=== PATIENT | female | born 1980 | race Two or more races ===

== ENCOUNTER → 2024-03-03 | Outpatient (CLI) | payer OTHER, SELFPAY ==
[2024-03-03 08:47] LABS: T4 (Thyroxine) 10.4 mcg/dL (4.5-10.9)
[2024-03-03 08:48] LABS: Thyroid Stimulating Hormone 24.14 uIU/mL (0.55-4.78)
== END | disposition home or self-care (01) ==
LOC: COPL 06:45
PROVIDERS: PCP Family Medicine; Referring Provider Family Medicine; Visit Provider Family Medicine
DX: E03.9 Hypothyroidism, unspecified (principal)
CPT/HCPCS: 36415; 84436; 84443

== ENCOUNTER → 2024-07-08 | Outpatient (CLI) | payer OTHER, SELFPAY ==
[2024-07-08 14:48] LABS: T4 (Thyroxine) 7.3 mcg/dL (4.5-10.9)
[2024-07-08 14:49] LABS: Thyroid Stimulating Hormone 1.78 uIU/mL (0.55-4.78)
== END | disposition home or self-care (01) ==
LOC: COPL 13:11
PROVIDERS: PCP Family Medicine; Referring Provider Family Medicine; Visit Provider Family Medicine
DX: E03.9 Hypothyroidism, unspecified (principal)
CPT/HCPCS: 36415; 84436; 84443

== ENCOUNTER → 2024-10-05 | Outpatient (CLI) | payer OTHER, SELFPAY ==
[2024-10-05 14:59] LABS: T4 (Thyroxine) 6.0 mcg/dL (4.5-10.9); Thyroid Stimulating Hormone 4.69 uIU/mL (0.55-4.78)
== END | disposition home or self-care (01) ==
LOC: COPL 13:58
PROVIDERS: PCP Family Medicine; Referring Provider Family Medicine; Visit Provider Family Medicine
DX: E03.9 Hypothyroidism, unspecified (principal)
CPT/HCPCS: 36415; 84436; 84443

== ENCOUNTER → 2024-10-21 | Outpatient (CLI) | payer OTHER, SELFPAY ==
--- NOTE | 2024-10-21 13:17 | XR_ITS ---
Examination: Foot bilateral, 6 views Technique: AP, oblique, lateral views each foot total 6 views Date and time of exam: October 21, 2024 1322 hours INDICATIONS: Bilateral foot pain beginning 18 months ago. FINDINGS: Mild osteopenia. Bilateral mild narrowing first metatarsophalangeal joints 10 mm right 10 mm left plantar bony calcaneal spurs No fractures IMPRESSION: Large bilateral plantar bony calcaneal spurs
== END | disposition home or self-care (01) ==
LOC: CDIM 13:05
PROVIDERS: PCP Family Medicine; Referring Provider Family Medicine; Visit Provider Family Medicine
DX: M77.32 Calcaneal spur, left foot (principal); M77.31 Calcaneal spur, right foot
CPT/HCPCS: 73630

== ENCOUNTER 2024-11-15 15:02 | Emergency (ER) | payer OTHER, SELFPAY ==
[2024-11-15 15:03] VITALS: BMI 43.8
[2024-11-15 15:25] VITALS: BP 154/94; PULSE 106; RESP 17; TEMP 37.4; O2SAT 95
--- NOTE | 2024-11-15 15:51 | XR_ITS ---
Examination: Pelvic ultrasound, transabdominal, complete Technique: Transabdominal ultrasound of the pelvis performed using grayscale imaging Date and time of exam: November 15, 2024 at 1817 hours INDICATIONS: Pelvic pain beginning 2 days ago, history ovarian cystic disease FINDINGS: Uterus 8.4 cm endometrial stripe 0.3 cm. No uterine mass or intrauterine gestation. Right ovary 2.7 cm arterial flow Left ovary obscured by bowel gas IMPRESSION: No uterine mass or intrauterine gestation
--- NOTE | 2024-11-15 15:53 | XR_ITS ---
Examination: CT abdomen with intravenous contrast CT pelvis with intravenous contrast 2-D coronal reconstructions 2-D sagittal reconstructions Date and time of exam:November 15, 2024, 1856 hours INDICATIONS: Abdominal pain flank pain and back pain today. CTDI: vol (mGy) 21.7 DLP: (mGycm) 1326 Technique: Multiple axial sections of the abdomen and pelvis have been obtained. 64 slice high-resolution scanner used. 3 mm axial sections have been obtained, post intravenous injection 60 cc Isovue 370 2-D sagittal, coronal reconstructions obtained. Low dose protocols were performed. One or more of the following dose reduction techniques were used; automated exposure control, adjustment of the mA and/or KV according to patient size, use of iterative reconstruction technique. Findings: No focal liver or splenic lesion No gallstones No pancreatic mass 18 mm fat-containing adrenal nodule on the right Minimal right hydronephrosis secondary to 2 mm distal right ureteral calculus image 211 Normal appendix No bowel obstruction Anteverted uterus No bladder mass Moderate disc narrowing L5-S1 IMPRESSION: Minimal right hydronephrosis secondary to 2 mm distal right ureteral calculus
--- NOTE | 2024-11-15 15:54 | PD.EDRME ---
Rapid Medical Screening Exam RME Arrival date/time: 11/15/24 15:02 Chief Complaint: Back Pain/Injury Time Seen by Provider: 11/15/24 15:22 Vital signs: Vital Signs Temperature 99.4 F 11/15/24 15:25 Pulse Rate 106 H 11/15/24 15:25 Respiratory Rate 17 11/15/24 15:25 Blood Pressure 154/94 H 11/15/24 15:25 Pulse Oximetry (%) 95 11/15/24 15:25 Oxygen Delivery Method Room Air 11/15/24 15:25 Vital signs reviewed by provider: Yes RME Narrative: Patient is a 44-year-old female is in emerged from with concerns for bilateral flank pain as well as pelvic pain. Patient states that she has a history of ovarian cysts requiring removal of one of her ovaries possibly the left one and fibromyalgia. Patient states that she was in so much pain in her pelvis yesterday that she took an oxycodone. Today had severe left back pain, and then right flank pain and took took the oxycodone at approximately 2 PM. Patient continues to be in pain however somewhat improved from earlier today. Patient denies any recent trauma, history of IV drug use unintended weight loss, night sweats, overexertion. Patient spoke to her primary care doctor advised her to come to the emergency department for a CT scan.
[2024-11-15 16:29] LABS: Basophils # (Auto) 0.0 Thou/mm3 (0.0-0.2); Basophils % (Auto) 0 % (0-2.5); Eosinophils # (Auto) 0.1 Thou/mm3 (0.0-0.5); Eosinophils % (Auto) 1 % (0-10); Hematocrit 39.0 % (36.0-46.0); Hemoglobin 13.4 g/dL (12.0-16.0); Immature Granulocytes Auto 0.06 Thou/mm3 (0.00-0.00); Lymphocytes # (Auto) 2.5 Thou/mm3 (1.0-4.8); Lymphocytes % (Auto) 21 % (10-50); Mean Corpuscular HGB Conc 34.4 g/dl (31.0-37.0); Mean Corpuscular Hemoglobin 32.2 pg (25.0-35.0); Mean Corpuscular Volume 94 fL (80-100); Monocytes # (Auto) 0.8 Thou/mm3 (0.0-0.8); Monocytes % (Auto) 6 % (0-12); Neutrophils # (Auto) 8.9 Thou/mm3 (1.8-7.7); Neutrophils % (Auto) 72 % (37-80); Nucleated Red Blood Cell # 0.00 Thou/mm3 (0.00-0.00); Nucleated Red Blood Cell % 0 /100 WBC (0); Platelet Count 299 Thou/mm3 (140-440); RDW Standard Deviation 41.7 fL (36.4-46.3); Red Blood Count 4.16 Miln/mm3 (4.00-5.20); White Blood Count 12.3 Thou/mm3 (3.6-11.0)
[2024-11-15 16:45] LABS: HCG,Qualitative Serum Negative
[2024-11-15 16:54] LABS: Alanine Aminotransferase 37 U/L (10-49); Albumin, Serum 4.4 gm/dL (3.5-5.0); Albumin/Globulin Ratio 1.8 (1.2-2.2); Alkaline Phosphatase 88 U/L (46-116); Anion Gap 11 (7-16); Aspartate Amino Transferase 31 U/L (0-34); BUN/Creatinine Ratio 13 Ratio (12-20); Bilirubin,Total 0.3 mg/dL (0.3-1.2); Blood Urea Nitrogen 9 mg/dL (9-23); Calcium 9.1 mg/dL (8.3-10.6); Calcium (Corrected) 9.1 mg/dL (8.5-10.1); Carbon Dioxide 24.7 mMol/L (20.0-31.0); Chloride 106 mMol/L (98-107); Creatinine (Component) 0.7 mg/dL (0.6-1.3); Estimated Creatinine Clearance 143.6 mL/min (>60); Globulin 2.4 gm/dL (2.3-3.5); Glucose 101 mg/dL (74-106); Lipase 24 U/L (12-53); Osmolality,Calculated 281 (275-295); Potassium 3.5 mMol/L (3.4-5.1); Sodium 142 mMol/L (136-145); Total Protein 6.8 gm/dL (5.7-8.2); eGFR > 60 See Note
[2024-11-15 17:11] LABS: Collection Type, Urine Clean Catch
[2024-11-15 17:58] LABS: Bacteria,Urine Rare; Bilirubin,Urine Negative (Negative); Blood,Urine 3+ (Negative); Clarity,Urine Turbid (Clear/Hazy); Glucose, Urine Negative (Negative); Ketones,Urine Negative (Negative); Leukocyte Esterase,Urine Positive (Negative); Nitrite,Urine Negative (Negative); PH,Urine 6.0 (5.0-7.0); Protein,Urine 2+ (Neg - Trace); RBC,Urine 709 /hpf (0-3); Specific Gravity,Urine 1.015 (1.001-1.035); Squamous Epithelial Cell,Urine 2 /hpf (0-5); Urobilinogen,Urine Negative mg/dL (0.0-1.0); WBC,Urine 185 /hpf (0-5)
[2024-11-15 18:04] LABS: Color,Urine Drk Orange (Lt Yel-Yel)
[2024-11-15 19:18] VITALS: BP 161/92; PULSE 94; RESP 18; TEMP 37.5; O2SAT 97
[2024-11-15 21:12] VITALS: BP 171/92; PULSE 88; RESP 15; TEMP 37.5; O2SAT 97
--- NOTE | 2024-11-15 21:29 | PD.EDBACK ---
ED Back Injury Pain RME/HPI General Chief Complaint: Back Pain/Injury Stated Complaint: RIGHT FLANK PAIN TODAY Time Seen by Provider: 11/15/24 15:22 Arrival date/time: 11/15/24 15:02 RME / HPI RME / HPI Narrative: Patient is a 44-year-old female is in emerged from with concerns for bilateral flank pain as well as pelvic pain. Patient states that she has a history of ovarian cysts requiring removal of one of her ovaries possibly the left one and fibromyalgia. Patient states that she was in so much pain in her pelvis yesterday that she took an oxycodone. Today had severe left back pain, and then right flank pain and took took the oxycodone at approximately 2 PM. Patient continues to be in pain however somewhat improved from earlier today. Patient denies any recent trauma, history of IV drug use unintended weight loss, night sweats, overexertion. Patient spoke to her primary care doctor advised her to come to the emergency department for a CT scan. Dr. Mcgee?s Main ED Evaluation: 44yo female presents to the ED for a chief complaint of right flank pain. Patient states she started having significant right flank pain last night that progressively got worse. She was unable to tolerate the pain today, so she came in for evaluation. Patient denies any nausea, vomiting or any other associated symptoms. She does take oxycodone at home for her fibromyalgia. Related Data Home Medications ?Medication ?Instructions ?Recorded ?Confirmed cholecalciferol (vitamin D3) 125 1 cap PO DAILY 01/19/19 02/03/19 mcg (5,000 unit) tablet (Vitamin D3) ferrous sulfate 325 mg (65 mg 325 mg PO BID 01/19/19 02/03/19 iron) tablet vits no.124-ferrous fum 1 tab PO DAILY 01/19/19 02/03/19 27 mg iron-folic acid 800 mcg tablet ( Vitamin) docosahexaenoic acid (dha)-epa 120 1 cap PO QDAY 01/24/19 02/03/19 mg-180 mg capsule (Fish Oil) magnesium 250 mg tablet 250 mg PO QDAY 01/24/19 02/03/19 labetalol 100 mg tablet 100 mg PO BID 02/03/19 02/03/19 Previous Rx's ?Medication ?Instructions ?Recorded ibuprofen 600 mg tablet 600 mg PO Q6H #30 tabs 02/05/19 Allergies Allergy/AdvReac Type Severity Reaction Status Date / Time diphenhydramine Allergy Severe LEFT SIDED Verified 11/15/24 15:11 FACE NUMBNESS estradiol (From [place]) Allergy Severe Swelling Verified 11/15/24 15:11 of Lip/Tongue/Throat hydrocodone bit Allergy Severe HALLUCINATE Verified 11/15/24 15:11 S lamotrigine Allergy Severe Swelling Verified 11/15/24 15:11 meloxicam Allergy Severe Palpitation Verified 11/15/24 15:11 s morphine Allergy Severe Swelling Verified 11/15/24 15:11 of Lip/Tongue/Throat norethindrone (From Allergy Severe Swelling Verified 11/15/24 15:11 [facility]) of Lip/Tongue/Throat relugolix (From [place]) Allergy Severe Swelling Verified 11/15/24 15:11 of Lip/Tongue/Throat wheat Allergy Severe Palpitation Verified 11/15/24 15:11 s fentanyl Allergy Mild Irritable Verified 11/15/24 15:11 ibuprofen (From Advil) AdvReac Severe Abdominal Verified 11/15/24 15:11 Pain meperidine AdvReac Severe DOES NOT Verified 11/15/24 15:11 ALLEVIATE PAIN Review of Systems Review of Systems Systems Reviewed: All systems reviewed, normal except as documented Past Medical History Past Medical History NEUROLOGIC: Positive Neurological Disorders, Migraine and Head Trauma; Negative Seizures CARDIAC: Negative Cardiac Disorders or Congestive Heart Failure RESPIRATORY: Positive Sleep Apnea (DOES NOT USE CPAP); Negative Chronic Obstructive Pulmonary Disease (COPD) or Asthma GASTROINTESTINAL: Positive Gastrointestinal Disorders, Gastroesophageal Reflux Disease and Obesity; Negative Hepatitis GENITOURINARY: Negative Genitourinary Disorders or Renal Disease REPRODUCTIVE: Positive Previous Pregnancies; Negative Endometriosis, Genital Herpes, Gonorrhea, Pelvic Inflammatory Disease, Syphilis or Uterine Prolapse MUSCULOSKELETAL: Positive Musculoskeletal Disorders ENT: Positive Head Trauma ENDOCRINE: Positive Endocrine Disorders (GOITER, FIBROMYALGIA.); Negative Diabetes Mellitus Type 1 or Diabetes Mellitus Type 2 HEMATOLOGIC: Negative Blood Disorders or Sickle Cell Disease PSYCHO/SOCIAL: Positive Depression, Anxiety and Post Traumatic Stress Disorder OTHER HISTORY: Positive Autoimmune Disease, Shingles, Falls and Chicken Pox; Negative Down Syndrome, Developmental Delay, Blood Transfusions, Blood Transfusion Reaction, Anesthesia Reactions, MRSA, VRSA, Vancomycin-Resistant Enterococci, Human Immunodeficiency Virus (HIV), Measles, Mumps, Rubella (English Measles), Pertussis, Clostridium Difficile or Cancer Family History FAMILY HISTORY: Positive Family Cardiac Disorders, Family Cancer and Family Surgery Surgical History SURGICAL: Negative Section OTHER SURGICAL HX: oophorectomy Social History SMOKING STATUS: Never smoker SECOND HAND EXPOSURE: No ED Exam Narrative Physical exam: Generally patient is alert in no obvious distress, heart is regular rate and rhythm, lungs good auscultation equal bilaterally, abdomen soft bowel sounds present nondistended right lateral lower tenderness without rebound, musculoskeletal exam showed the patient had mild right-sided costovertebral angle tenderness Course Quality Measures none Orders Category Date Time Status CT Screening NOW Care 11/15/24 15:[address] abdomen pelvis w con Stat Exams 11/15/24 15:53 Completed US pelvic complete Stat Exams 11/15/24 15:51 Completed CBC Stat Lab 11/15/24 16:04 Completed CMP [Comprehensive Metabolic Panel] Stat Lab 11/15/24 16:04 Completed HCG,Qualitative Serum Stat Lab 11/15/24 16:04 Completed Lipase Stat Lab 11/15/24 16:04 Completed UA [Urinalysis] Stat Lab 11/15/24 17:00 Completed Ringers Lactated 1000 ml [Lactated Ringers] 1,000 ml Med 11/15/24 16:00 Discontinued IV 999 mls/hr Vital Signs Vital signs: Vital Signs Temperature 99.4 F 11/15/24 15:25 Pulse Rate 106 H 11/15/24 15:25 Respiratory Rate 17 11/15/24 15:25 Blood Pressure 154/94 H 11/15/24 15:25 Pulse Oximetry (%) 95 11/15/24 15:25 Oxygen Delivery Method Room Air 11/15/24 15:25 Back Pain / Injury MDM Narrative MDM Narrative:: Scribe Attestation: 11/15/24 - Michelle Love am scribing for and in the presence of Dr. Mcgee. And interpreted all labs. The urine is not infected. Patient is not wanting pain medication at this time because she has so many reactions to medications. CT scan done of the abdomen and pelvis with IV contrast shows a 2 mm right distal ureteral stone with mild right sided hydronephrosis. Pelvic ultrasound was unremarkable. Patient will be discharged Patient data External records reviewed:: [facility] previous records (Per chart review, patient has no relevant previous ED visits.) Clinical information provided by:: patient Social determinants that could affect healthcare access:: none Patient has the following chronic illnesses:: GERD How is presenting disease/condition affected by chronic disease/condition?: uneffected by Evaluation data The following diagnostics were reviewed and interpreted by me:: lab results and radiology exam(s) Lab and/or radiology exams considered but not ordered:: none Interpretation Summary: [facility] Report Signed Patient: FANNY DAVIS. Record#: [id number] Birthdate: 1980 Age/Sex: 44 / F Location: [facility] Attending Dr: Ordering Physician: Pooja Reid MD Date of Service: 11/15/24 Procedure(s): CT abdomen pelvis w con Accession Number(s): [id number] cc: Donnell Robertson MD; Kady Zhang MD; Pooja Reid MD~ Examination: CT abdomen with intravenous contrast CT pelvis with intravenous contrast 2-D coronal reconstructions 2-D sagittal reconstructions Date and time of exam:November 15, 2024, 1856 hours INDICATIONS: Abdominal pain flank pain and back pain today. CTDI: vol (mGy) 21.7 DLP: (mGycm) 1326 Technique: Multiple axial sections of the abdomen and pelvis have been obtained. 64 slice high-resolution scanner used. 3 mm axial sections have been obtained, post intravenous injection 60 cc Isovue 370 2-D sagittal, coronal reconstructions obtained. Low dose protocols were performed. One or more of the following dose reduction techniques were used; automated exposure control, adjustment of the mA and/or KV according to patient size, use of iterative reconstruction technique. Findings: No focal liver or splenic lesion No gallstones No pancreatic mass 18 mm fat-containing adrenal nodule on the right Minimal right hydronephrosis secondary to 2 mm distal right ureteral calculus image 211 Normal appendix No bowel obstruction Anteverted uterus No bladder mass Moderate disc narrowing L5-S1 IMPRESSION: Minimal right hydronephrosis secondary to 2 mm distal right ureteral calculus Dictated By: Donnell Robertson MD Signed By: <Electronically signed by Donnell Robertson MD in [place]> 11/15/24 1920 [facility] Report Signed Patient: FANNY DAVIS Record#: [id number] Birthdate: 1980 Age/Sex: 44 / F Location: [facility] Attending Dr: Ordering Physician: Pooja Reid MD Date of Service: 11/15/24 Procedure(s): US pelvic complete Accession Number(s): [id number] cc: Donnell Robertson MD; Kady Zhang MD; Pooja Reid MD~ Examination: Pelvic ultrasound, transabdominal, complete Technique: Transabdominal ultrasound of the pelvis performed using grayscale imaging Date and time of exam: November 15, 2024 at 1817 hours INDICATIONS: Pelvic pain beginning 2 days ago, history ovarian cystic disease FINDINGS: Uterus 8.4 cm endometrial stripe 0.3 cm. No uterine mass or intrauterine gestation. Right ovary 2.7 cm arterial flow Left ovary obscured by bowel gas IMPRESSION: No uterine mass or intrauterine gestation Dictated By: Donnell Robertson MD Signed By: <Electronically signed by Donnell Robertson MD in OV> 11/15/24 191 Medications / Prescriptions Medications or Prescriptions considered but not ordered:: none Medication administrations:: Medication Administration History Discontinued Medications Lactated Ringer's (Lactated Ringers) 1,000 mls @ 999 mls/hr IV .Q1H1M ONE Stop: 11/15/24 17:00 Last Admin: 11/15/24 19:12 Dose: Not Given Documented By: Non-Admin Reason: Patient Refused Comments: IV occluded, patient refused new IV site and IVF see above, if any Consultations Consultation(s) initiated? (list below): No Diagnosis Differential diagnosis back pain/injury: renal colic, pyelonephritis and other (cystitis, UTI) Most likely diagnosis given after review of the tests above:: see clinical impression below Admission Indicated Admission indicated?: not indicated Explain why admission is indicated or not indicated:: With no condition needing emergent intervention, there was no indication for admission. Admission Request Was there a request for admission?: No Disposition Plan Disposition Plan: Discharge Discharge Attestation Discharge Attestation: The patient and all family members were given an opportunity to ask questions and understood the discharge instructions. Discharge instructions specifically effects, indications for sooner follow up or return to the emergency department, and the expected course of current diagnosis. Patient condition: Stable Discharge Plan Plan Patient Disposition: HOME (Self Care) Prescriptions/Referrals Prescriptions/Med Rec: No Action Vitamin 27 mg iron- 800 mcg Tablet 1 tab PO DAILY ferrous sulfate 325 mg (65 mg iron) Tablet 325 mg PO BID cholecalciferol (vitamin D3) [Vitamin D3] 5,000 unit Tablet 1 cap PO DAILY magnesium 250 mg Tablet 250 mg PO QDAY Fish Oil 120-180 mg Capsule 1 cap PO QDAY labetalol 100 mg Tablet 100 mg PO BID ibuprofen 600 mg tablet 600 mg PO Q6H Qty: 30 0RF Referrals: Kady Zhang MD [Primary Care Provider] - In 1 week Problem List Clinical Impression: Kidney stone Patient/Caregiver Discharge Instructions Education Materials: ED Kidney Stone w/ Colic Additional Instructions: Keep well-hydrated. Follow-up with your doctor. Return to ER as needed or if condition worsens. Print Language: Danish Stand Alone Forms: [facility] Award Info., Patient Portal Info Letter
[2024-11-15 22:19] VITALS: BP 141/90; PULSE 83; RESP 17; O2SAT 95
== END 2024-11-15 22:20 | disposition home or self-care (01) ==
PROVIDERS: Emergency Medicine; Emergency Provider Emergency Medicine; PCP Family Medicine
DX: N13.2 Hydronephrosis with renal and ureteral calculous obstruction (principal); M79.7 Fibromyalgia
CPT/HCPCS: 36415; 74177; 76856; 80053; 81001; 83690; 84703; 85025; 99283; A4649; Q9967

== ENCOUNTER → 2025-01-05 | Outpatient (CLI) | payer OTHER, SELFPAY ==
[2025-01-05 15:52] LABS: Basophils # (Auto) 0.0 Thou/mm3 (0.0-0.2); Basophils % (Auto) 0 % (0-2.5); Eosinophils # (Auto) 0.1 Thou/mm3 (0.0-0.5); Eosinophils % (Auto) 1 % (0-10); Hematocrit 40.4 % (36.0-46.0); Hemoglobin 13.5 g/dL (12.0-16.0); Immature Granulocytes Auto 0.06 Thou/mm3 (0.00-0.00); Lymphocytes # (Auto) 2.9 Thou/mm3 (1.0-4.8); Lymphocytes % (Auto) 34 % (10-50); Mean Corpuscular HGB Conc 33.4 g/dl (31.0-37.0); Mean Corpuscular Hemoglobin 31.6 pg (25.0-35.0); Mean Corpuscular Volume 95 fL (80-100); Monocytes # (Auto) 0.6 Thou/mm3 (0.0-0.8); Monocytes % (Auto) 7 % (0-12); Neutrophils # (Auto) 4.8 Thou/mm3 (1.8-7.7); Neutrophils % (Auto) 57 % (37-80); Nucleated Red Blood Cell # 0.00 Thou/mm3 (0.00-0.00); Nucleated Red Blood Cell % 0 /100 WBC (0); Platelet Count 285 Thou/mm3 (140-440); RDW Standard Deviation 42.5 fL (36.4-46.3); Red Blood Count 4.27 Miln/mm3 (4.00-5.20); White Blood Count 8.4 Thou/mm3 (3.6-11.0)
[2025-01-05 16:05] LABS: T4 (Thyroxine) 6.4 mcg/dL (4.5-10.9)
[2025-01-05 16:08] LABS: Alanine Aminotransferase 118 U/L (10-49); Albumin, Serum 4.2 gm/dL (3.5-5.0); Albumin/Globulin Ratio 1.7 (1.2-2.2); Alkaline Phosphatase 105 U/L (46-116); Anion Gap 10 (7-16); Aspartate Amino Transferase 56 U/L (0-34); BUN/Creatinine Ratio 10 Ratio (12-20); Bilirubin,Total 0.5 mg/dL (0.3-1.2); Blood Urea Nitrogen 7 mg/dL (9-23); Calcium 9.0 mg/dL (8.3-10.6); Calcium (Corrected) 9.0 mg/dL (8.5-10.1); Carbon Dioxide 27.7 mMol/L (20.0-31.0); Cardiac Risk Estimate 4.0 RATIO (3.7-5.6); Chloride 104 mMol/L (98-107); Cholesterol 202 mg/dL (132-200); Creatinine (Component) 0.7 mg/dL (0.6-1.3); Globulin 2.5 gm/dL (2.3-3.5); Glucose 92 mg/dL (74-106); HDL Cholesterol 51 mg/dL (40-60); LDL Cholesterol,Calculated 119 mg/dL (0-130); Osmolality,Calculated 281 (275-295); Potassium 4.0 mMol/L (3.4-5.1); Sodium 142 mMol/L (136-145); Thyroid Stimulating Hormone 1.86 uIU/mL (0.55-4.78); Total Protein 6.7 gm/dL (5.7-8.2); Triglycerides 160 mg/dL (30-150); eGFR > 60 See Note
== END | disposition home or self-care (01) ==
PROVIDERS: PCP Family Medicine; Referring Provider Family Medicine; Visit Provider Family Medicine
DX: Z00.00 Encounter for general adult medical examination without abnormal findings (principal)
CPT/HCPCS: 36415; 80053; 80061; 84436; 84443; 85025

== ENCOUNTER → 2025-01-14 | Outpatient (BNVA) | payer OTHER, SELFPAY | END | disposition home or self-care (01) | PROVIDERS: PCP Family Medicine; Referring Provider Family Medicine; Visit Provider Urology | DX: N20.0 Calculus of kidney (principal); D35.01 Benign neoplasm of right adrenal gland; E66.9 Obesity, unspecified; Z68.41 Body mass index [BMI] 40.0-44.9, adult | CPT/HCPCS: 81003; 99212; G0463 ==

== ENCOUNTER → 2025-01-26 | Outpatient (CLI) | payer OTHER, SELFPAY ==
[2025-01-26 15:05] LABS: RA Screen Negative (Negative)
[2025-01-29 06:36] LABS: PTT-LA Screen 35 seconds (< OR = 40); dRVVT Screen 34 seconds (< OR = 45)
[2025-02-05 23:35] LABS: Sjogren's antibody (SS-A) <1.0 NEG AI (<1.0 NEGATIVE); Sm Antibody <1.0 NEG AI (<1.0 NEGATIVE)
[2025-02-08 07:01] LABS: ANA Screen, IFA NEGATIVE (NEGATIVE); Actin Antibody (IgG)* <20 U; Complement Component C3* 144 mg/dL (83-193); Complement Component C4c* 30 mg/dL (15-57); DNA (ds) Antibody* <1 IU/mL; Gastric Parietal Cell Ab* <20.0 U; Mitochondrial Ab NEGATIVE (NEGATIVE); Myocardial Ab, IF NEGATIVE (NEGATIVE); Scl-70 Antibody* <1.0 NEG AI (<1.0 NEGATIVE); Sjogren's Antibody (SS-B) <1.0 NEG AI (<1.0 NEGATIVE); Sm/RNP Antibody <1.0 NEG AI (<1.0 NEGATIVE); Striated Muscle Ab NEGATIVE (NEGATIVE); Thyroid Peroxidase Antibodies* <1 IU/mL (<9)
== END | disposition home or self-care (01) ==
LOC: COPL 10:24
PROVIDERS: PCP Family Medicine; Referring Provider Family Medicine; Visit Provider Family Medicine
DX: E03.9 Hypothyroidism, unspecified (principal); M25.571 Pain in right ankle and joints of right foot; M25.579 Pain in unspecified ankle and joints of unspecified foot; M79.7 Fibromyalgia; R74.01 Elevation of levels of liver transaminase levels
CPT/HCPCS: 36415; 83516; 85613; 85730; 86015; 86038; 86160; 86225; 86235; 86255; 86376; 86430

== ENCOUNTER → 2025-02-08 | Outpatient (CLI) | payer OTHER, SELFPAY ==
--- NOTE | 2025-02-08 08:30 | XR_ITS ---
Examination: Abdomen sonogram, complete Date and time of exam: February 08, 2025, 0839 hours INDICATION: Elevated liver function test on laboratory examination January 05, 2025. Technique: Multiple real-time grayscale transabdominal sonographic images of the abdomen have been obtained. Findings: Normal gallbladder Normal common bile duct 0.4 cm Pancreatic head 2.9 cm 13 mm x 14 mm cyst in the body of the pancreas Aorta not enlarged Liver 16.9 cm fatty infiltration Normal hepatopetal portal venous flow Patent IVC Right kidney 10.1 cm renal cortex 2.0 cm Left kidney 10.9 cm renal cortex 2.2 cm Spleen 11.2 cm IMPRESSION: Recommend MRI abdomen pancreas follow-up to confirm benign cyst in the body the pancreas Normal gallbladder
== END | disposition home or self-care (01) ==
PROVIDERS: PCP Family Medicine; Referring Provider Family Medicine; Visit Provider Family Medicine
DX: K86.2 Cyst of pancreas (principal)
CPT/HCPCS: 76700

== ENCOUNTER → 2025-03-01 | Outpatient (CLI) | payer OTHER, SELFPAY ==
[2025-03-01 10:52] LABS: Alanine Aminotransferase 47 U/L (10-49); Albumin, Serum 4.5 gm/dL (3.5-5.0); Albumin/Globulin Ratio 1.7 (1.2-2.2); Alkaline Phosphatase 77 U/L (46-116); Anion Gap 11 (7-16); Aspartate Amino Transferase 34 U/L (0-34); BUN/Creatinine Ratio 13 Ratio (12-20); Bilirubin,Total 0.4 mg/dL (0.3-1.2); Blood Urea Nitrogen 10 mg/dL (9-23); Calcium 9.1 mg/dL (8.3-10.6); Calcium (Corrected) 9.1 mg/dL (8.5-10.1); Carbon Dioxide 25.7 mMol/L (20.0-31.0); Chloride 109 mMol/L (98-107); Creatinine (Component) 0.8 mg/dL (0.6-1.3); Globulin 2.7 gm/dL (2.3-3.5); Glucose 104 mg/dL (74-106); Osmolality,Calculated 289 (275-295); Potassium 4.0 mMol/L (3.4-5.1); Sodium 146 mMol/L (136-145); Total Protein 7.2 gm/dL (5.7-8.2); eGFR > 60 See Note
== END | disposition home or self-care (01) ==
LOC: COPL 08:44
PROVIDERS: PCP Family Medicine; Referring Provider Family Medicine; Visit Provider Family Medicine
DX: R74.01 Elevation of levels of liver transaminase levels (principal)
CPT/HCPCS: 36415; 80053